=== PATIENT | female | born 1970 | race Caucasian/White ===

== ENCOUNTER 2017-05-02 10:59 | Emergency (ER) | payer OTHER ==
[~2017-05-02] VITALS: Ht 165.1 cm; Wt 90.7 kg
[~2017-05-02 10:59] MED LIST: KEFLEX500 MG PO; VENTOLIN HFA 1818 GM INH; ZPAK PO
[2017-05-02] MEDS ORDERED: ZPAK PO (12:45)
[2017-05-02] MEDS ORDERED: PROAIR HFA8.5 GM INH (12:45)
[2017-05-02] MEDS ORDERED: PREDNISONE 20 M20 M1 PO (12:45)
[2017-05-02] MEDS ORDERED: CHERATUSSIN AC118 ML PO (13:22)
[2017-05-02] MEDS ORDERED: ALBUTEROL2.5 MG/31 INH (13:31)
[2017-05-02 13:41] VITALS: BP 143/91
== END 2017-05-02 13:41 | disposition home or self-care (01) ==
LOC: M.ERS 10:59
DX: J20.9 Acute bronchitis, unspecified (principal); J18.9 Pneumonia, unspecified organism; F17.200 Nicotine dependence, unspecified, uncomplicated; Z88.0 Allergy status to penicillin